=== PATIENT | female | born 1965 | race Caucasian/White ===

== ENCOUNTER 2016-10-04 11:56 | Day surgery (SDC) | payer OTHER ==
[2016-10-04] MEDS ORDERED: LIDOCAINE 1% 5 ML SDV ID PRN (13:00)
[2016-10-04] MEDS ORDERED: LR 1,000 ML IV ONE (13:00)
[2016-10-04] MEDS ORDERED: SILVER NITRATE APPLICATOR 1 APPL TP ONE (15:12)
[2016-10-04] MEDS ORDERED: LIDOCAINE 1% 30 ML SDV ONE (15:13)
[2016-10-04] MEDS ORDERED: LIDOCAINE 2% 5 ML SDV ONE ×2 (15:14→16:10)
[2016-10-04] MEDS ORDERED: MIDAZOLAM 2 MG/2 ML VIAL ONE (16:07)
[2016-10-04] MEDS ORDERED: KETOROLAC 30 MG/1 ML SDV ONE (16:10)
[2016-10-04] MEDS ORDERED: DEXAMETHASONE 4 MG/ML VIAL ONE (16:10)
[2016-10-04] MEDS ORDERED: fentaNYL 100 MCG/2 ML INJ ONE ×2 (16:10→17:02)
[2016-10-04] MEDS ORDERED: ONDANSETRON 4 MG/2 ML VIAL ONE (16:10)
[2016-10-04] MEDS ORDERED: PROPOFOL 200 MG/20 ML VIAL ONE (16:11)
[2016-10-04] MEDS ORDERED: LIDO/EPI 1% **Not for Epidural 20 ML MDV ONE (16:21)
--- NOTE | 2016-10-04 17:29 | GOP ---
[f rep st] OPERATIVE REPORT DATE OF OPERATION: 10/04/2016 SURGEON: Tessa Mejía MD [facility] ARCHITECT: None. ANESTHESIA: LMA. PREOPERATIVE DIAGNOSIS: Postmenopausal bleeding and submucosal fibroid. POSTOPERATIVE DIAGNOSIS: Postmenopausal bleeding. PROCEDURE PERFORMED: Hysteroscopy, dilatation and curettage. FINDINGS: Normal endometrial cavity. No submucosal fibroids. SPECIMENS: Endometrial curettings. INDICATIONS: Purvi is a 51-year-old female who had an episode of postmenopausal bleeding, and had a pelvic ultrasound which revealed a fibroid that appeared to be pushing on the endometrium. The patient did have a normal endometrial biopsy prior to the procedure. Recommend evaluation with hysteroscopy and possible myomectomy for possible submucosal fibroid, which the patient agreed to. DESCRIPTION OF PROCEDURE: The patient was taken to the operating room. She was prepped and draped in normal sterile fashion in the high dorsal lithotomy position. A surgical timeout was performed verifying the patient's name, date of , planned procedure, and site. A bivalve speculum was placed in the patient's vagina. The anterior aspect of the cervix was grasped with a single-toothed tenaculum. The patient received a paracervical block of 1% lidocaine with epinephrine. Her cervix was dilated to 6.5 mm. The hysteroscope was placed into the uterine cavity. The patient had a normal uterine cavity. There were no fibroids visualized. She had normal bilateral tubal ostia. D and C was performed to verify there were no abnormal cells. EBL was less than 10 mL. Endometrial curettings were sent to Pathology. Tenaculum was removed. Hemostasis was obtained. [place] speculum was removed. All counts were correct x2. FLUID DEFICIT: 20 mL. COMPLICATIONS: None. OUTCOME: Stable to recovery room. /[id number]/MODL MTDD
== END 2016-10-04 19:45 | disposition home or self-care (01) ==
LOC: FSGY 11:56
PROVIDERS: ATTEND Obstetrics & Gynecology
PROC: 0UDB8ZX Extraction of Endometrium, Via Natural or Artificial Opening Endoscopic, Diagnostic (ICD-10-PCS; principal; 2016-10-04 13:15)
DX: N95.0 Postmenopausal bleeding (principal); I10 Essential (primary) hypertension
CPT/HCPCS: J1100; J1885; J2250; J2405; J2704; J3010

== ENCOUNTER → 2017-06-14 | Outpatient (CLI) | payer OTHER | LOC: FIMAGING 07:58 | PROVIDERS: ATTEND Family Medicine | DX: M99.73 Connective tissue and disc stenosis of intervertebral foramina of lumbar region (principal); M12.88 Other specific arthropathies, not elsewhere classified, other specified site; M79.7 Fibromyalgia; M35.00 Sjogren syndrome, unspecified ==

== ENCOUNTER → 2017-12-26 | Outpatient (CLI) | payer OTHER | LOC: CIMAGING 12:32 | PROVIDERS: ATTEND Family Medicine | DX: M25.461 Effusion, right knee (principal); M25.561 Pain in right knee | CPT/HCPCS: 73560-PO ==